=== PATIENT | male | born 1995 | race African-American/Black ===

== ENCOUNTER 2021-07-31 15:03 | Emergency (ER) | payer OTHER ==
[~2021-07-31] VITALS: Ht 180.3 cm; Wt 65.1 kg
[2021-07-31 16:42] LABS: BASO % 0.6 % (0.0-1.0); EOS # 0.1 10^3/uL (0.0-0.5); EOS % 1.7 % (0.0-3.0); HEMOGLOBIN 12.4 g/dl (13.5-17.5); LYMPH # 1.9 10^3/uL (1.5-5.0); LYMPH % 54.5 % (24.0-44.0); MEAN CORPUSCULAR HEMOGLOBIN 30.2 pg (27.0-33.0); MEAN CORPUSCULAR HGB CONC 33.5 g/dl (32.0-36.5); MONO # 0.3 10^3/uL (0.0-0.8); MONO % 9.6 % (2.0-8.0); NEUTROPHILS # 1.2 10^3/uL (1.5-8.5); NEUTROPHILS % 33.6 % (36.0-66.0); PLATELET COUNT, AUTOMATED 222 10^3/uL (150-450); RED BLOOD COUNT 4.11 10^6/uL (4.30-6.10); WHITE BLOOD COUNT 3.5 10^3/uL (4.0-10.0)
[2021-07-31 17:16] LABS: BLOOD UREA NITROGEN 19 MG/DL (7-18); CALCIUM LEVEL 8.9 MG/DL (8.5-10.1); CARBON DIOXIDE LEVEL 34 MEQ/L (21-32); CHLORIDE LEVEL 106 MEQ/L (98-107); CREATININE FOR GFR 1.03 MG/DL (0.70-1.30); GLOMERULAR FILTRATION RATE > 60.0 (>60); GLUCOSE, FASTING 84 MG/DL (70-100); POTASSIUM SERUM 3.4 MEQ/L (3.5-5.1); SODIUM LEVEL 143 MEQ/L (136-145)
[2021-07-31] MEDS ORDERED: POTA10CA32 PO (17:20)
[2021-07-31] MEDS ORDERED: FERR325T3 PO (17:21)
[2021-07-31 17:45] VITALS: BP 123/73
== END 2021-07-31 17:46 | disposition home or self-care (01) ==
LOC: M ED 15:03
DX: D55.0 Anemia due to glucose-6-phosphate dehydrogenase [G6PD] deficiency (principal); R79.89 Other specified abnormal findings of blood chemistry; R53.83 Other fatigue

== ENCOUNTER 2025-01-26 07:19 | Observation (INO) | payer OTHER ==
[~2025-01-26] VITALS: Ht 177.8 cm; Wt 58.9 kg
[~2025-01-26 07:19] MED LIST: CYCL5TAB4 PO; FERR325T3 PO; POTA10CA70 PO; SERT25TA21 PO; TRAZ-252 PO
[2025-01-26 08:03] LABS: BASO # 0.0 10^3/uL (0.0-0.2); BASO % 0.5 % (0.0-1.0); EOS # 0.1 10^3/uL (0.0-0.5); EOS % 1.9 % (0.0-3.0); LYMPH # 2.1 10^3/uL (1.5-5.0); LYMPH % 50.1 % (24.0-44.0); MONO # 0.4 10^3/uL (0.0-0.8); MONO % 9.0 % (2.0-8.0); NEUTROPHILS # 1.6 10^3/uL (1.5-8.5); NEUTROPHILS % 38.3 % (36.0-66.0); PLATELET COUNT, AUTOMATED 203 10^3/uL (150-450)
[2025-01-26] MEDS ORDERED: CYCL5TAB4 PO (08:12)
[2025-01-26 08:25] LABS: CPK CREATINE PHOSPHOKINASE 169 U/L (46-171)
[2025-01-26 08:32] LABS: CALCIUM LEVEL 9.1 MG/DL (8.5-10.1); CARBON DIOXIDE LEVEL 33 MMOL/L (20-31); CHLORIDE LEVEL 102 MMOL/L (98-107); CK-MB VALUE MASS < 1.0 NG/ML (<3.6); CREATININE FOR GFR 0.96 MG/DL (0.70-1.30); FREE T4 1.28 NG/DL (0.89-1.76); GLOMERULAR FILTRATION RATE > 90.0 (>60); MAGNESIUM LEVEL 2.1 MG/DL (1.8-2.4); POTASSIUM SERUM 2.8 MMOL/L (3.5-5.1); SODIUM LEVEL 143 MMOL/L (136-145)
[2025-01-26 09:38] LABS: CK-MB VALUE MASS < 1.0 NG/ML (<3.6)
[2025-01-26 09:39] LABS: CPK CREATINE PHOSPHOKINASE 172 U/L (46-171)
[2025-01-26] MEDS: POTASSIUM CHLORIDE 10MEQ SR TABLET PO ONE (09:43)
[2025-01-26] MEDS: KCL 10MEQ/100ML SWI (KRUN) 10 MEQ in IV 1 EA IV ONE (09:44)
[2025-01-26] MEDS ORDERED: NALT50TA4 PO (10:40)
[2025-01-26] MEDS ORDERED: HOME MED LIST COMPLETE! XX SCH (10:40)
[2025-01-26] MEDS ORDERED: SERT25TA85 PO (10:40)
[2025-01-26] MEDS ORDERED: TRAZ-252 PO (10:40)
[2025-01-26] MEDS: NS (Normal Saline) 0.9% 1,000 ML IV SCH (12:13)
[2025-01-26 13:41] LABS: KETONE, URINE AUTO RFX NEGATIVE (NEGATIVE); LEUKOCYTE ESTERASE UR AUTO RFX NEGATIVE (NEGATIVE); MUCUS, URINE RFX LARGE (NEGATIVE); NITRITE, URINE AUTO RFX NEGATIVE (NEGATIVE); RBC, URINE AUTO RFX 4 /HPF (0-3); SQUAM EPITHELIAL CELL UR AURFX 0 /HPF (0-6); WBC, URINE AUTO RFX 5 /HPF (0-3)
[2025-01-26] MEDS: ENOXAPARIN 40 MG/0.4 ML SYRINGE (J1650 PER 10MG) SC SCH (13:42)
[2025-01-26] MEDS: KCL 10MEQ/100ML SWI (KRUN) 10 MEQ in IV 1 EA IV SCH (13:52)
[2025-01-26 14:10] VITALS: BP 113/77; TEMP 97.1; O2SAT 97
[2025-01-26 14:19] LABS: AMPHETAMINES LEVEL URINE NEGATIVE (NEGATIVE); BARBITURATES URINE NEGATIVE (NEGATIVE); BENZODIAZEPINES URINE NEGATIVE (NEGATIVE)
[2025-01-26 14:20] LABS: CANNABINOIDS URINE NEGATIVE (NEGATIVE); COCAINE METABOLITE URINE NEGATIVE (NEGATIVE); METHADONE URINE NEGATIVE (NEGATIVE); OPIATES URINE NEGATIVE (NEGATIVE); PHENCYCLIDINE URINE NEGATIVE (NEGATIVE)
[2025-01-26] MEDS: POTASSIUM CHLORIDE 10MEQ SR TABLET PO SCH (15:07)
[2025-01-26 16:00] VITALS: BP 126/74; TEMP 97.6; O2SAT 98
[2025-01-26 18:57] LABS: CK-MB VALUE MASS < 1.0 NG/ML (<3.6)
[2025-01-26 18:58] LABS: CPK CREATINE PHOSPHOKINASE 169 U/L (46-171)
[2025-01-26 19:41] VITALS: BP 120/68; TEMP 97.8; O2SAT 99
[2025-01-26 23:32] VITALS: BP 115/82; TEMP 97.6; O2SAT 99
[2025-01-27 03:06] LABS: CK-MB VALUE MASS < 1.0 NG/ML (<3.6)
[2025-01-27 03:07] LABS: CPK CREATINE PHOSPHOKINASE 149 U/L (46-171)
[2025-01-27 03:53] VITALS: BP 112/62; TEMP 97.9; O2SAT 98
[2025-01-27 05:32] LABS: PLATELET COUNT, AUTOMATED 185 10^3/uL (150-450)
[2025-01-27 06:13] LABS: CALCIUM LEVEL 8.6 MG/DL (8.5-10.1); CARBON DIOXIDE LEVEL 30 MMOL/L (20-31); CHLORIDE LEVEL 105 MMOL/L (98-107); CREATININE FOR GFR 0.92 MG/DL (0.70-1.30); GLOMERULAR FILTRATION RATE > 90.0 (>60); MAGNESIUM LEVEL 1.9 MG/DL (1.8-2.4); POTASSIUM SERUM 3.5 MMOL/L (3.5-5.1); SODIUM LEVEL 145 MMOL/L (136-145)
[2025-01-27 07:46] VITALS: BP 111/73; TEMP 97.7; O2SAT 98
[2025-01-27 11:28] LABS: CK-MB VALUE MASS < 1.0 NG/ML (<3.6)
[2025-01-27 11:54] VITALS: BP 122/70; TEMP 98; O2SAT 97
[2025-01-27 12:31] LABS: CPK CREATINE PHOSPHOKINASE 145 U/L (46-171)
[2025-01-30 13:37] LABS: BORRELIA SPECIES DNA NOT DETECTED (NOT DETECT)
== END 2025-01-27 12:10 | disposition home or self-care (01) ==
LOC: EDBD 07:19 → M ED 07:19 → M ED INP 07:20 → M PCU 14:02
PROVIDERS: ADMIT Family Medicine; ATTEND Family Medicine
DX: R55 Syncope and collapse (principal); R00.1 Bradycardia, unspecified; E87.6 Hypokalemia; F39 Unspecified mood [affective] disorder; F10.20 Alcohol dependence, uncomplicated; F17.200 Nicotine dependence, unspecified, uncomplicated
CPT/HCPCS: 36415; 70450; 71046; 72125; 80048; 80307; 81001; 82140; 82550; 82553; 83735; 84439; 84443; 84484; 85025; 85027; 87468; 87469; 87478; 87484; 87801; 93005; 93041; 94760; 96365; 96366; 96372; 99285; J1650